=== PATIENT | female | born 1955 | race Caucasian/White ===

== ENCOUNTER 2018-04-09 10:16 | Day surgery (SDC) | payer MEDICARE, OTHER ==
[~2018-04-09 10:16] MED LIST: Lactated Ringers 1,000 ML IV SCH; Lidocaine 2% 5 ML SDV ONE; Midazolam 1 MG/ML 2 ML SDV ONE; Propofol 200 MG/20 ML SDV ONE; Sodium Chloride 0.9% 10 ML Syringe FLUSH PRN; Sodium Chloride 0.9% 2.5 ML Syringe FLUSH PRN; fentaNYL 100 MCG/2 ML SDV ONE
--- NOTE | 2018-04-09 10:56 | PCM.PREANE ---
Preanesthetic Assessment - Anesthesia/Transfusion/Family Hx Anesthesia History: Prior Anesthesia Without Reaction Family History of Anesthesia Reaction: No Transfusion History: No Prior Transfusion(s) - Review of Systems General: No Symptoms Pulmonary: No Symptoms Cardiovascular: No Symptoms Gastrointestinal: No Symptoms Neurological: No Symptoms Other: Reports: None - Physical Assessment NPO Status Date: 04/09/18 NPO Status Time: 06:00 O2 Sat by Pulse Oximetry: 99 Respiratory Rate: 16 Vital Signs: Last Vital Signs Temp 36.4 C 04/09/18 10:51 Pulse 53 L 04/09/18 10:51 Resp 16 04/09/18 10:51 BP 106/62 04/09/18 10:51 Pulse Ox 99 04/09/18 10:51 Height: 1.59 m Weight: 55.792 kg ASA Class: 2 Mental Status: Alert & Oriented x3 Airway Class: Mallampati = 1 Dentition: Reports: Normal Dentition ROM/Head Extension: Full Lungs: Clear to Auscultation, Normal Respiratory Effort Cardiovascular: Regular Rate, Regular Rhythm - Allergies Allergies/Adverse Reactions: Allergies Allergy/AdvReac Type Severity Reaction Status Date / Time animal dander Allergy sneezing/watery Verified 04/04/18 12:51 eyes - Anesthesia Plan Pre-Op Medication Ordered: None - Acknowledgements Anesthesia Type Planned: MAC Pt an Appropriate Candidate for the Planned Anesthesia: Yes Alternatives and Risks of Anesthesia Discussed w Pt/Guardian: Yes Pt/Guardian Understands and Agrees with Anesthesia Plan: Yes Additional Comments: PMH: migraine, takes omeprazole with migraine med for stomach upset from sumatriptan, no GERD PreAnesthesia Questionnaire HEENT History: Reports: None Genitourinary History: Reports: None NORMALIZER History: Reports: Musculoskeletal History: Reports: Fracture Other Musculoskeletal History: hx fx foot Neurological History: Reports: Migraines - Past Surgical History Head Surgeries/Procedures: Reports: None HEENT Surgical History: Reports: Oral Surgery Female Surgical History: Reports: Tubal Ligation Neurological Surgical History: Reports: C-Spine Other Neurological Surgeries/Procedures: hx neck surgery - SUBSTANCE USE Smoking Status *Q: Current Every Day Smoker Tobacco Use Within Last Twelve Months: Cigarettes Recreational Drug Use History: No - HOME MEDS Home Medications: Home Meds Omeprazole 40 mg PO ASDIRECTED PRN 04/04/18 [History] SUMAtriptan 1 tab PO ASDIRECTED PRN 04/04/18 [History] - CURRENT (IN HOUSE) MEDS Current Meds: Current Medications Lactated Ringer's (Ringers, Lactated) 1,000 mls @ 125 mls/hr IV ASDIRECTED OMKAR Sodium Chloride (Saline Flush) 10 ml FLUSH ASDIRECTED PRN PRN Reason: Keep Vein Open Sodium Chloride (Saline Flush) 2.5 ml FLUSH ASDIRECTED PRN PRN Reason: Keep Vein Open Sodium Chloride (Saline Flush) 10 ml FLUSH ASDIRECTED PRN PRN Reason: Keep Vein Open Sodium Chloride (Saline Flush) 2.5 ml FLUSH ASDIRECTED PRN PRN Reason: Keep Vein Open Discontinued Medications Fentanyl (Sublimaze) Confirm Administered Dose 100 mcg .ROUTE .STK-MED ONE Stop: 04/09/18 07:02 Lidocaine (Xylocaine-Mpf 2%) Confirm Administered Dose 5 ml .ROUTE .STK-MED ONE Stop: 04/09/18 07:02 Midazolam HCl (Versed 1 Mg/Ml) Confirm Administered Dose 2 mg .ROUTE .STK-MED ONE Stop: 04/09/18 07:02 Propofol (Diprivan 20 Ml) Confirm Administered Dose 200 mg .ROUTE .STK-MED ONE Stop: 04/09/18 07:02
--- NOTE | 2018-04-09 12:27 | PCM48HPAN ---
Post Anesthesia Note - EVALUATION WITHIN 48HRS OF ANESTHETIC Vital Signs in Normal Range: Yes Patient Participated in Evaluation: Yes Respiratory Function Stable: Yes Airway Patent: Yes Cardiovascular Function Stable: Yes Hydration Status Stable: Yes Pain Control Satisfactory: Yes Nausea and Vomiting Control Satisfactory: Yes Mental Status Recovered: Yes Resp Rate: 9
--- NOTE | 2018-04-09 12:27 | PCM.POSTAN ---
POST ANESTHESIA ASSESSMENT - MENTAL STATUS Mental Status: Alert, Oriented - RESPIRATORY Respiratory Status: Respiratory Rate WNL, Airway Patent, O2 Saturation Stable - CARDIOVASCULAR CV Status: Pulse Rate WNL, Blood Pressure Stable - GASTROINTESTINAL GI Status: No Symptoms - POST OP HYDRATION Hydration Status: Adequate & Stable
--- NOTE | 2018-04-09 12:33 | PCM.OPNOTE ---
- General Post-Op/Procedure Note Date of Surgery/Procedure: 04/09/18 Operative Procedure(s): Screening colonoscopy Findings: Sigmoid colon polyp Pre Op Diagnosis: Colonoscopy Post-Op Diagnosis: Sigmoid colon polyp Anesthesia Technique: MAC Primary Surgeon: Kaya Torres Condition: Good Free Text/Narrative:: Intake & Output 04/08/18 04/09/18 04/09/18 22:59 06:59 14:59 Intake Total 750 Balance 750
--- NOTE | 2018-04-09 18:55 | OR ---
SURGEON: TITO PAUL MD DATE OF PROCEDURE: 04/09/2018 PREOPERATIVE DIAGNOSIS: Screening colonoscopy. POSTOPERATIVE DIAGNOSIS: Sigmoid colon polyp. PROCEDURE PERFORMED: Screening colonoscopy. ANESTHESIA: MAC. INSTRUMENT USED: Olympus colonoscope. EXTENT OF EXAM: To the cecum. PREPARATION: Good. LIMITATIONS: None. INDICATION FOR EXAMINATION: She is a 63-year-old female, who presents for first time screening colonoscopy. We discussed the procedure as well as the expected perioperative course. We discussed the risks including bleeding, infection, or damage to surrounding structures including perforation. The patient verbalized understanding and wishes to proceed. PROCEDURE IN DETAIL: The patient was brought to the endoscopy suite and placed in a left lateral decubitus position. A time-out was completed verifying the patient's name, age, date of , allergies, and procedure to be performed. Monitored anesthesia care was induced and continuous oxygen was provided via nasal cannula throughout the procedure. After adequate sedation was achieved, a digital rectal exam was performed. This exam was within normal limits. A well lubricated colonoscope was inserted in the rectum and advanced under direct visualization to the level of cecum. The cecum was identified by both visual and anatomic landmarks. A photograph was taken of the cecal cap as well as with the scope in the retroflexed position. The scope was then fully withdrawn while examining the color, texture, anatomy, and integrity mucosa from the cecum to the anal canal. The patient was found to have a 3 to 4 mm sessile polyp within the sigmoid colon. This was removed using a cold biopsy forceps. The scope was then brought into the rectum and retroflexed to allow visualization of the anal canal opening. This appeared normal and a photograph was taken. The scope was then straightened out and fully withdrawn. The cecum to anus time was 15 minutes. The patient tolerated the procedure well and was taken to PACU in stable condition. ENDOSCOPIC DIAGNOSIS: Sigmoid colon polyp. RECOMMENDATIONS: Follow up in clinic in 2 weeks. MILO WYNN /[id number]
== END 2018-04-09 12:45 | disposition home or self-care (01) ==
LOC: MW.SDS 10:16
PROVIDERS: ATTEND Surgery
DX: Z12.11 Encounter for screening for malignant neoplasm of colon (principal); K63.5 Polyp of colon; F17.210 Nicotine dependence, cigarettes, uncomplicated; K21.9 Gastro-esophageal reflux disease without esophagitis; G43.909 Migraine, unspecified, not intractable, without status migrainosus; Z91.048 Other nonmedicinal substance allergy status; Z79.899 Other long term (current) drug therapy
CPT/HCPCS: 45380; J2250; J3010; J7120; 88305; J2704

== ENCOUNTER 2020-06-30 03:33 | Emergency (ER) | payer MEDICARE, OTHER ==
[2020-06-30] MEDS ORDERED: Sodium Chloride 0.9% 2.5 ML Syringe FLUSH PRN (04:01)
[2020-06-30] MEDS ORDERED: Ondansetron 4 MG/2 ML SDV IVPUSH ONE (04:01)
[2020-06-30] MEDS ORDERED: Pantoprazole 40 MG in Sodium Chloride 0.9% 10 ML IV ONE (04:01)
[2020-06-30] MEDS ORDERED: Sodium Chloride 0.9% 10 ML Syringe FLUSH PRN (04:01)
[2020-06-30] MEDS ORDERED: Sodium Chloride 0.9% 1,000 ML IV ONE (04:01)
[2020-06-30 04:40] LABS: BLOOD UREA NITROGEN,BUN 11 mg/dL (7.0-18.0); CARBON DIOXIDE,CO2 25.5 mmol/L (21.0-32.0); CHLORIDE,CL 103 mmol/L (98-107); GLUCOSE RANDOM 118 mg/dL (74-106); LIPASE 103 U/L (73-393); POTASSIUM,K 4.2 mmol/L (3.5-5.1); SODIUM,NA 138 mmol/L (136-145)
[2020-06-30] MEDS ORDERED: Iopamidol 755 Mg/ML 100 ML Bottle IVPUSH STA (05:14)
[2020-06-30] MEDS ORDERED: Ketorolac 30 MG/ML SDV IVPUSH ONE (05:23)
[2020-06-30] MEDS: Ketorolac 15 MG/ML SDV ONE ×2 (05:29→05:31)
--- NOTE | 2020-06-30 05:38 | CT ---
INDICATION: Abdominal pain with weight loss TECHNIQUE: Axial images were obtained from the diaphragm to the pubic symphysis. Reformats were obtained in the coronal and sagittal plane. IV Contrast: 65 cc Isovue 370 Oral Contrast: None COMPARISON: None. FINDINGS: Lower chest: Underlying centrilobular emphysema with area of linear scarring within the left lower lobe. Liver: Liver is normal in contour with multiple hypodense lesions consistent with hepatic cysts. Largest measures 2.4 centimeters in the left lobe. Gallbladder and bile ducts: Unremarkable. No stones or inflammation. No biliary dilatation. Spleen: Unremarkable. Normal in size without mass. Pancreas: Unremarkable. No mass or inflammation. Adrenal glands: Unremarkable. No nodules. Kidneys: Symmetric renal enhancement with a left renal cyst measuring 2.3 centimeters. Subcentimeter right renal cysts. Vasculature: Atherosclerosis without abdominal aortic aneurysm. GI tract: The fundus of the stomach is poorly evaluated due to incomplete distention. No dilated loops of large or small intestine. Appendix unremarkable. Pelvis: Bladder unremarkable. No adnexal mass. Uterus retroverted. Bones: Bilateral hip osteoarthritis. IMPRESSION: 1. No dilated bowel or localized inflammation. 2. Hepatic and bilateral renal cysts. 3. Centrilobular emphysema. Please note that all CT scans at this facility use dose modulation, iterative reconstruction, and/or weight-based dosing when appropriate to reduce radiation dose to as low as reasonably achievable. Dictated by Mark Hargrove MD @ Jun 30 2020 5:22AM Signed by Dr. Mark Hargrove @ Jun 30 2020 5:36AM
--- NOTE | 2020-06-30 05:53 | EDM.PDOC ---
ED HPI GENERAL MEDICAL PROBLEM - General Chief Complaint: Abdominal Pain Stated Complaint: ABDOMINAL PAIN Time Seen by Provider: 06/30/20 03:50 - History of Present Illness INITIAL COMMENTS - FREE TEXT/NARRATIVE: HISTORY AND PHYSICAL: History of present illness: This is a 65-year-old female with a history significant for migraines, gastritis, who presents the ER today complaining of abdominal pain times several months but worse over the last 3 to 4 days as well as a headache for several month as well but over the last several days has started to experience drainage as well. Patient denies any recent fevers, shakes, chills, vomiting, diarrhea, dysuria, frequency, urgency, chest pain, shortness of breath. Patient reports that the pain is greatest in the midepigastric region. Patient denies any pain rating to her back jaw or arms. Patient reports pain is sometimes exacerbated with meals and has had decreased p.o. intake over the last 1 to 2 days. Patient reports that she did eat dinner last night, she reports she ate potato soup that was homemade without any difficulty. Patient reports a weight loss of approximately 5 pounds over the last several weeks that has been unintentional. Patient denies any melena or bright red blood per rectum. Patient denies any double vision or blurred vision. Patient has any weakness to her upper or lower extremities. Patient has any slurring in her speech. Review of systems: As per history of present illness and below otherwise all systems reviewed and negative. Past medical history: As per history of present illness and as reviewed below otherwise noncontributo ry. Surgical history: As per history of present illness and as reviewed below otherwise noncontributory. Social history: No reported history of drug or alcohol abuse. Family history: As per history of present illness and as reviewed below otherwise noncontributory. Physical exam: Constitutional: Patient is oriented to person, place, and time. Appears well- developed and well-nourished. No distress. HEENT: Moist mucous membranes Head: Normocephalic and atraumatic Eyes: Right eye exhibits no discharge. Left eye exhibits no discharge. No scleral icterus Neck: Normal range of motion. No tracheal deviation present. Neck supple, no nuchal rigidity, no photophobia, no Kernig's sign or Brudzinski sign, patient does not present with signs or symptoms of be consistent with meningitis. Cardiovascular: Normal rate and regular rhythm. Pulmonary: Effort normal, no respiratory distress. Abd: Soft, nondistended, no rebound/guarding, no psoas or obturator signs, no tenderness at Mcberney's point, no Brandon's sign. Pt does not present with an exam that would be consistent with an acute surgical abdomen at this time. Pain greatest in the midepigastric region Musculoskeletal: Normal range of motion Neurologic: Alert and oriented to person, place and time. Motor is 5 out of 5 in her upper and lower extremities, cranial nerves II to XII intact. Skin: [place], warm and dry. Psychiatric: Normal mood and affect. Behavior is normal. Judgment and thought content normal. Nursing note and vital signs have been reviewed Diagnostics: CBC, CMP, lipase, CT scan of the abdomen pelvis with IV contrast, urinalysis Therapeutics: Normal saline, Toradol, Zofran. Coronavirus test Assessment and plan: This is a 65-year-old female who presents to the ER today complaining of headache for several days with sinus drainage and is concerned about a possible sinus infection. Patient reports this is different than her usual migraines and so far is usually she does not have sinus drainage. Patient reports is not the worst headache of her life. Patient does not present with signs or symptoms of be concerning for meningitis. Patient also complaining of abdominal pain that has been on and off for several month as well but has increased over the last several days. Patient's ER work-up has been remarkable for normal CBC, CMP, lipase. Patient's urinalysis is within normal limits. Patient had a CT scan of her abdomen pelvis with IV contrast which did not reveal any masses, inflammation, diverticulitis, appendicitis, aneurysms. I discussed with the patient the cyst on her liver and the need to follow-up. While the ER the patient was given Toradol and Zofran as well as normal saline solution x1 L and reports that she does feel better. Etiology of her abdominal pain is unclear. Patient does not present with any signs or symptoms that be concerning for an acute surgical abdomen. Patient is currently on Prilosec but we will add Pepcid as well to her regimen in order to decrease amount of acid in her stomach in case this is gastritis. Patient has been instructed as to the need to follow-up with her primary care physician for an outpatient GI work-up. Etiology of her headache also is unclear however patient does not present with any signs or symptoms of be concerning for meningitis, subarachnoid hemorrhage, intracranial mass or emergent pathology. Patient will be started on Zithromax given her concern with recent sinus drainage and will be instructed to follow-up with her primary care physician if her headache should persist. Definitive disposition and diagnosis as appropriate pending reevaluation and review of above. abdominal Pain Score (Numeric/FACES): 5 headache Pain Score (Numeric/FACES): 10 - Related Data Allergies Allergy/AdvReac Type Severity Reaction Status Date / Time animal dander Allergy sneezing/watery Verified 06/30/20 03:44 eyes Home Meds: Home Meds Omeprazole 40 mg PO ASDIRECTED PRN 04/04/18 [History] SUMAtriptan 1 tab PO ASDIRECTED PRN 04/04/18 [History] Azithromycin [Zithromax] 250 mg PO DAILY #4 tablet 06/30/20 [Rx] Famotidine [Pepcid] 20 mg PO BID #30 tablet 06/30/20 [Rx] Omeprazole Magnesium [Prilosec Otc] 20 mg PO DAILY #30 tablet. 06/30/20 [Rx] Ondansetron [Zofran ODT] 4 mg PO Q6H PRN #12 tab.dis 06/30/20 [Rx] Past Medical History HEENT History: Reports: None Cardiovascular History: Reports: None Respiratory History: Reports: None Gastrointestinal History: Reports: None Genitourinary History: Reports: None X RAY PHYSICIAN History: Reports: Musculoskeletal History: Reports: Fracture Other Musculoskeletal History: hx fx foot Neurological History: Reports: Migraines Psychiatric History: Reports: None Endocrine/Metabolic History: Reports: None Hematologic History: Reports: None - Infectious Disease History Infectious Disease History: Reports: Chicken Pox - Past Surgical History Head Surgeries/Procedures: Reports: None HEENT Surgical History: Reports: Oral Surgery Female Surgical History: Reports: Tubal Ligation Neurological Surgical History: Reports: C-Spine Other Neurological Surgeries/Procedures: hx neck surgery Social & Family History - Family History Family Medical History: Noncontributory - Tobacco Use Years of Tobacco use: 50 - Recreational Drug Use Recreational Drug Use: No ED ROS GENERAL - Review of Systems Review Of Systems: See Below ED EXAM, GENERAL - Physical Exam Exam: See Below Course - Vital Signs Last Recorded V/S: Last Vital Signs Temp 97.9 F 06/30/20 06:35 Pulse 78 06/30/20 06:35 Resp 16 06/30/20 06:35 BP 129/43 L 06/30/20 06:35 Pulse Ox 97 06/30/20 06:35 - Orders/Labs/Meds Orders: Active Orders 24 hr Category Date Time Status Saline Lock Insert [OM.PC] Stat Oth 06/30/20 04:01 Ordered Labs: Laboratory Tests 06/30/20 06/30/20 06/30/20 Range/Units 03:53 04:10 04:10 WBC 7.96 (4.0-11.0) K/uL RBC 4.07 L (4.30-5.90) M/uL Hgb 12.7 (12.0-16.0) g/dL Hct 38.4 (36.0-46.0) % MCV 94.3 (80.0-98.0) fL MCH 31.2 (27.0-32.0) pg MCHC 33.1 (31.0-37.0) g/dL RDW Std Deviation 45.1 (28.0-62.0) fl RDW Coeff of Yvette 13 (11.0-15.0) % Plt Count 339 (150-400) K/uL MPV 8.80 (7.40-12.00) fL Neut % (Auto) 73.8 (48.0-80.0) % Lymph % (Auto) 19.8 (16.0-40.0) % Burt % (Auto) 5.5 (0.0-15.0) % Eos % (Auto) 0.6 (0.0-7.0) % Baso % (Auto) 0.3 (0.0-1.5) % Neut # (Auto) 5.9 H (1.4-5.7) K/uL Lymph # (Auto) 1.6 (0.6-2.4) K/uL Burt # (Auto) 0.4 (0.0-0.8) K/uL Eos # (Auto) 0.1 (0.0-0.7) K/uL Baso # (Auto) 0.0 (0.0-0.1) K/uL Nucleated RBC % 0.0 /100WBC Nucleated RBCs # 0 K/uL Sodium 138 (136-145) mmol/L Potassium 4.2 (3.5-5.1) mmol/L Chloride 103 (98-107) mmol/L Carbon Dioxide 25.5 (21.0-32.0) mmol/L BUN 11 (7.0-18.0) mg/dL Creatinine 1.1 H (0.6-1.0) mg/dL Est Cr Clr Drug Dosing 39.25 mL/min Estimated GFR (MDRD) 49.5 ml/min Glucose 118 H (74-106) mg/dL Calcium 9.5 (8.5-10.1) mg/dL Total Bilirubin 0.4 (0.2-1.0) mg/dL AST 19 (15-37) IU/L ALT 20 (14-63) IU/L Alkaline Phosphatase 66 (46-116) U/L Troponin I < 0.050 (0.000-0.056) ng/mL Total Protein 6.8 (6.4-8.2) g/dL Albumin 3.9 (3.4-5.0) g/dL Globulin 2.9 (2.6-4.0) g/dL Albumin/Globulin Ratio 1.3 (0.9-1.6) Lipase 103 (73-393) U/L Urine Color YELLOW Urine Appearance CLEAR Urine pH 6.0 (5.0-8.0) Ur Specific [place] >= 1.030 (1.001-1.035) Urine Protein 100 H (NEGATIVE) mg/dL Urine Glucose (UA) NEGATIVE (NEGATIVE) mg/dL Urine Ketones TRACE H (NEGATIVE) mg/dL Urine Occult Blood SMALL H (NEGATIVE) Urine Nitrite NEGATIVE (NEGATIVE) Urine Bilirubin NEGATIVE (NEGATIVE) Urine Urobilinogen 0.2 (<2.0) EU/dL Ur Leukocyte Esterase NEGATIVE (NEGATIVE) U Hyaline Cast (Auto) 0-1 (0-2/LPF) Urine RBC NONE SEEN (0-2/HPF) Urine WBC 0-3 (0-5/HPF) Ur Epithelial Cells FEW (NONE-FEW) Urine Bacteria 1+ H (NEGATIVE) Urine Mucus MODERATE (NONE-MOD) COVID-19 (OVIDIO) (NEGATIVE) 06/30/20 Range/Units 05:45 WBC (4.0-11.0) K/uL RBC (4.30-5.90) M/uL Hgb (12.0-16.0) g/dL Hct (36.0-46.0) % MCV (80.0-98.0) fL MCH (27.0-32.0) pg MCHC (31.0-37.0) g/dL RDW Std Deviation (28.0-62.0) fl RDW Coeff of Yvette (11.0-15.0) % Plt Count (150-400) K/uL MPV (7.40-12.00) fL Neut % (Auto) (48.0-80.0) % Lymph % (Auto) (16.0-40.0) % Burt % (Auto) (0.0-15.0) % Eos % (Auto) (0.0-7.0) % Baso % (Auto) (0.0-1.5) % Neut # (Auto) (1.4-5.7) K/uL Lymph # (Auto) (0.6-2.4) K/uL Burt # (Auto) (0.0-0.8) K/uL Eos # (Auto) (0.0-0.7) K/uL Baso # (Auto) (0.0-0.1) K/uL Nucleated RBC % /100WBC Nucleated RBCs # K/uL Sodium (136-145) mmol/L Potassium (3.5-5.1) mmol/L Chloride (98-107) mmol/L Carbon Dioxide (21.0-32.0) mmol/L BUN (7.0-18.0) mg/dL Creatinine (0.6-1.0) mg/dL Est Cr Clr Drug Dosing mL/min Estimated GFR (MDRD) ml/min Glucose (74-106) mg/dL Calcium (8.5-10.1) mg/dL Total Bilirubin (0.2-1.0) mg/dL AST (15-37) IU/L ALT (14-63) IU/L Alkaline Phosphatase (46-116) U/L Troponin I (0.000-0.056) ng/mL Total Protein (6.4-8.2) g/dL Albumin (3.4-5.0) g/dL Globulin (2.6-4.0) g/dL Albumin/Globulin Ratio (0.9-1.6) Lipase (73-393) U/L Urine Color Urine Appearance Urine pH (5.0-8.0) Ur Specific [place] (1.001-1.035) Urine Protein (NEGATIVE) mg/dL Urine Glucose (UA) (NEGATIVE) mg/dL Urine Ketones (NEGATIVE) mg/dL Urine Occult Blood (NEGATIVE) Urine Nitrite (NEGATIVE) Urine Bilirubin (NEGATIVE) Urine Urobilinogen (<2.0) EU/dL Ur Leukocyte Esterase (NEGATIVE) U Hyaline Cast (Auto) (0-2/LPF) Urine RBC (0-2/HPF) Urine WBC (0-5/HPF) Ur Epithelial Cells (NONE-FEW) Urine Bacteria (NEGATIVE) Urine Mucus (NONE-MOD) COVID-19 (OVIDIO) NEGATIVE (NEGATIVE) Meds: Medications Discontinued Medications Generic Name Dose Route Start Last Admin Trade Name Freq PRN Reason Stop Dose Admin Azithromycin 500 mg 06/30/20 06:21 06/30/20 06:41 Zithromax PO 06/30/20 06:22 500 mg Q24H ONE Administration Sodium Chloride 1,000 mls @ 999 mls/hr 06/30/20 04:01 06/30/20 04:17 Normal Saline IV 06/30/20 05:01 999 mls/hr .Bolus ONE Administration Pantoprazole Sodium 40 mg/ 10 mls @ 300 mls/hr 06/30/20 04:01 06/30/20 04:17 Sodium Chloride IV 06/30/20 04:02 300 mls/hr NOW ONE Administration Iopamidol 65 ml 06/30/20 05:14 06/30/20 05:15 Isovue-370 (76%) IVPUSH 06/30/20 05:15 65 ml ONETIME STA Administration Ketorolac Tromethamine 15 mg 06/30/20 05:23 06/30/20 05:29 Toradol IVPUSH 06/30/20 05:24 15 mg ONETIME ONE Administration Ketorolac Tromethamine Confirm 06/30/20 05:24 06/30/20 05:31 Toradol Administered 06/30/20 05:25 Not Given Dose 15 mg .ROUTE .STK-MED ONE Ondansetron HCl 4 mg 06/30/20 04:01 06/30/20 04:17 Zofran IVPUSH 06/30/20 04:02 4 mg ONETIME ONE Administration Sodium Chloride 10 ml 06/30/20 04:01 06/30/20 05:33 Saline Flush FLUSH 10 ml ASDIRECTED PRN Administration Keep Vein Open Sodium Chloride 2.5 ml 06/30/20 04:01 06/30/20 05:33 Saline Flush FLUSH 2.5 ml ASDIRECTED PRN Administration Keep Vein Open Departure - Departure Time of Disposition: 05:53 Disposition: Home, Self-Care 01 Condition: Good Clinical Impression: Gastritis, Abdominal pain, Sinusitis - Discharge Information Prescriptions: Famotidine [Pepcid] 20 mg PO BID #30 tablet Omeprazole Magnesium [Prilosec Otc] 20 mg PO DAILY #30 tablet. Azithromycin [Zithromax] 250 mg PO DAILY #4 tablet Ondansetron [Zofran ODT] 4 mg PO Q6H PRN #12 tab.dis PRN Reason: Nausea Instructions: Gastritis, Adult, Sinusitis, Adult, [id number], Abdominal Pain, Adult, [id number] Referrals: Jose De Jesus Bonilla MD [Primary Care Provider] - Forms: ED Department Discharge Additional Instructions: You were seen and evaluated in the ER today secondary to headache and abdominal pain. The etiology of your headache is not fully clear however it may very well be related to sinusitis given the sinus drainage that you are experiencing. You will be started on Zithromax in the ER and given prescription to take 1 pill daily for the next 4 additional days. With regards to your abdominal discomfort, your work-up is been unremarkable in the ED. This is included normal labs for renal function, liver function, electrolytes, white blood cell count, hemoglobin, urinalysis. The CT scan of your abdomen pelvis with IV contrast did not reveal any significant abnormality of your cause to your abdominal pain. The pain that you are experiencing may be related to inflamma tion of your stomach. You will be given a prescription for Pepcid and Prilosec to see if we can decrease the amount of acid in your stomach to see if that might help. Please make an appointment to see your family doctor to further reevaluate your headache as well as your abdominal pain. If your abdominal pain persists your doctor may refer you to a rfid manager in order to obtain an endoscopy. The following information is given to patients seen in the emergency department who are being discharged to home. This information is to outline your options for follow-up care. We provide all patients seen in our emergency department with a follow-up referral. The need for follow-up, as well as the timing and circumstances, are variable depending upon the specifics of your emergency department visit. If you don't have a primary care physician on staff, we will provide you with a referral. We always advise you to contact your personal physician following an emergency department visit to inform them of the circumstance of the visit and for follow-up with them and/or the need for any referrals to a consulting specialist. The emergency department will also refer you to a specialist when appropriate. This referral assures that you have the opportunity for follow-up care with a specialist. All of these measure are taken in an effort to provide you with optimal care, which includes your follow-up. Under all circumstances we always encourage you to contact your private physician who remains a resource for coordinating your care. When calling for follow-up care, please make the office aware that this follow-up is from your recent emergency room visit. If for any reason you are refused follow-up, please contact the [facility] Emergency Department at and asked to speak to the emergency department charge nurse. Sepsis Event Note (ED) - Evaluation Sepsis Screening Result: No Definite Risk - My Orders Last 24 Hours: My Active Orders 06/30/20 04:01 Saline Lock Insert [OM.PC] Stat - Assessment/Plan Last 24 Hours: My Active Orders 06/30/20 04:01 Saline Lock Insert [OM.PC] Stat
[2020-06-30] MEDS ORDERED: Azithromycin 250 MG Tab PO ONE (06:21)
== END 2020-06-30 06:35 | disposition home or self-care (01) ==
LOC: MW.ED 03:33
DX: K29.70 Gastritis, unspecified, without bleeding (principal); J32.9 Chronic sinusitis, unspecified; F17.200 Nicotine dependence, unspecified, uncomplicated; Z91.048 Other nonmedicinal substance allergy status; Z20.828 Contact with and (suspected) exposure to other viral communicable diseases
CPT/HCPCS: 36415; 74177; 80053; 81001; 83690; 84484; 85025; 96361; 96374; 96375; 99284; A9270; C9113; J1885; J2405; J7030; J7050; Q9967; U0002

== ENCOUNTER 2024-08-12 22:53 | Emergency (ER) | payer MEDICARE, OTHER ==
[2024-08-13] MEDS: Sodium Chloride 0.9% 1,000 ML IV ONE (00:05)
[2024-08-13] MEDS: Morphine 4 MG/ML Syringe IVPUSH ONE (00:05)
[2024-08-13] MEDS: Famotidine 20 MG/2 ML SDV IVPUSH ONE (00:05)
[2024-08-13] MEDS: Sodium Chloride 0.9% 2.5 ML Syringe FLUSH PRN (00:05)
[2024-08-13] MEDS: Sodium Chloride 0.9% 10 ML Syringe FLUSH PRN (00:06)
[2024-08-13 00:07] LABS: BASOPHILS ABSOLUTE AUTO 0.04 K/uL (0.00-0.20); BASOPHILS PERCENT AUTO 0.6 % (0.0-1.0); EOSINOPHILS ABSOLUTE AUTO 0.22 K/uL (0.00-0.45); EOSINOPHILS PERCENT AUTO 3.1 % (0.0-6.0); HEMATOCRIT 35.3 % (37.0-47.0); IMMATURE GRAN ABSOLUTE AUTO 0.03 K/uL (0.00-0.05); IMMATURE GRAN PERCENT AUTO 0.4 % (0.0-0.4); LYMPHOCYTES ABSOLUTE AUTO 2.94 K/uL (1.00-4.80); LYMPHOCYTES PERCENT AUTO 41.3 % (24.0-44.0); MEAN CORPUSCULAR HEMOGLOBIN 31.3 pg (28.0-32.0); MEAN CORPUSCULAR VOLUME 92.2 fL (83.0-99.0); MEAN PLATELET VOLUME 9.2 fL (9.4-12.3); MONOCYTES ABSOLUTE AUTO 0.61 K/uL (0.00-0.80); MONOCYTES PERCENT AUTO 8.6 % (0.0-8.0); NEUTROPHILS ABSOLUTE AUTO 3.28 K/uL (1.80-7.70); PLATELET COUNT,PLT 348 K/uL (150-400); RED BLOOD CELL COUNT 3.83 M/uL (4.10-5.30); WHITE BLOOD CELL COUNT,WBC 7.12 K/uL (3.9-11.3)
[2024-08-13 00:36] LABS: A/G RATIO 1.4 (0.9-1.6); ALANINE AMINOTRANSFERASE,ALT 20 IU/L (14-63); ALBUMIN 4.1 g/dL (3.4-5.0); ALKALINE PHOSPHATASE 96 U/L (46-116); ASPARTATE AMNIOTRANSFERASE,AST 21 IU/L (15-37); BILIRUBIN TOTAL 0.2 mg/dL (0.2-1.0); BLOOD UREA NITROGEN,BUN 21 mg/dL (7.0-18.0); CALCIUM 9.5 mg/dL (8.5-10.1); CARBON DIOXIDE,CO2 28.1 mmol/L (21.0-32.0); CHLORIDE,CL 102 mmol/L (98-107); CREATININE 1.1 mg/dL (0.6-1.0); GLUCOSE RANDOM 104 mg/dL (74-106); LIPASE 61 U/L (16-77); PRO B-TYPE NATRIUR PEPT,BNPPRO 319 pg/mL (0-125); PROTEIN TOTAL,TP 7.1 g/dL (6.4-8.2); SODIUM,NA 138 mmol/L (136-145)
[2024-08-13 00:38] LABS: ESTIMATED GFR 54 mL/min (>60)
[2024-08-13 01:01] LABS: APPEARANCE,URINE CLEAR; BILIRUBIN,URINE NEGATIVE (NEGATIVE); COLOR,URINE YELLOW; GLUCOSE,URINE NEGATIVE (NEGATIVE); KETONES,URINE NEGATIVE (NEGATIVE); LEUKOCYTE ESTERASE,URINE NEGATIVE (NEGATIVE); NITRITE,URINE NEGATIVE (NEGATIVE); OCCULT BLOOD,URINE NEGATIVE (NEGATIVE); PH,URINE 6.5 (5.0-8.0); PROTEIN,URINE NEGATIVE (NEGATIVE); UROBILINOGEN,URINE 0.2 EU/dL (<2.0)
[2024-08-13] MEDS: Iopamidol 755 MG/ML 500 ML Multipack Bottle IVPUSH STA (01:14)
[2024-08-13] MEDS: oxyCODONE 5 MG Tab PO STA (03:51)
== END 2024-08-13 03:52 | disposition home or self-care (01) ==
LOC: MW.ED 22:53
DX: R07.89 Other chest pain (principal); K29.00 Acute gastritis without bleeding; Z91.09 Other allergy status, other than to drugs and biological substances
CPT/HCPCS: 36415; 71045; 71275; 80053; 81003; 83690; 83880; 84484; 85025; 85379; 93005; 96361; 96374; 96375; 99285; A9270; J2270; J3490; J7030; Q9967; 93010; 99284